=== PATIENT | male | born 1965 | race Hispanic/Latino ===

== ENCOUNTER 2017-02-13 18:13 | Observation (INO) | payer OTHER, MEDICAID ==
[2017-02-13 18:26] VITALS: BMI 26.6
--- NOTE | 2017-02-13 18:43 | ED PDOC ---
Arrival/HPI - General Chief Complaint: Chest Pain Time Seen by Provider: 02/13/17 18:20 Historian: Patient - History of Present Illness Narrative History of Present Illness (Text): 02/13/17 18:24 Shiraz Call is a 51 year old male, whose family history includes stents, who presents to the emergency department complaining of shortness of breath and dizziness upon exertion for about 5 days. Patient also experiences associated intermittent chest tightness, vomiting twice a day for 5 days, and diarrhea for 3 days. Patient endorses that he smokes and uses heroine. Patient denies any fever, chills, nausea, vomiting, diarrhea, urinary symptoms, back pain, neck pain, or any other complaints. He reports he has not seen a doctor in many years. Patient has been under arrest since then. PMD: None Time/Duration: < week Symptom Onset: Gradual Symptom Course: Unchanged Severity Level: Mild Activities at Onset: Light Context: Other ([facility]) Past Medical History - Provider Review Nursing Documentation Reviewed: Yes - Infectious Disease Hx of Infectious Diseases: None - Psychiatric Hx Substance Use: No Family/Social History - Physician Review Nursing Documentation Reviewed: Yes Family/Social History: No Known Family HX Smoking Status: Current Some Days Smoker Hx Alcohol Use: No Hx Substance Use: No Allergies/Home Meds Allergies/Adverse Reactions: Allergies No Known Allergies Allergy (Verified 02/13/17 18:26) Home Medications: Home Meds Medication Instructions Recorded Confirmed No Known Home Med 02/13/17 02/13/17 Review of Systems - Physician Review All systems were reviewed & negative as marked: Yes - Review of Systems Constitutional: absent: Fevers, Night Sweats Eyes: absent: Vision Changes ENT: absent: Hearing Changes Respiratory: SOB Cardiovascular: Chest Pain (Chest Tightness) Gastrointestinal: Diarrhea, Nausea, Vomiting. absent: Abdominal Pain Genitourinary Male: absent: Urinary Output Changes Musculoskeletal: absent: Back Pain, Neck Pain Skin: absent: Rash, Pruritis Neurological: Dizziness Endocrine: absent: Diaphoresis Hemo/Lymphatic: absent: Easy Bleeding Psychiatric: absent: Depression Physical Exam Vital Signs Reviewed: Yes Vital Signs Temp Pulse Resp BP Pulse Ox 02/13/17 18:13 98.1 F 67 18 145/97 H 96 Temperature: Afebrile Blood Pressure: Hypertensive Pulse: Regular Respiratory Rate: Normal Appearance: Positive for: Well-Appearing, Non-Toxic, Comfortable Pain Distress: None Mental Status: Positive for: Alert and Oriented X 3 - Systems Exam Head: Present: Atraumatic, Normocephalic Pupils: Present: PERRL Conjunctiva: Present: Normal Mouth: Present: Moist Mucous Membranes Pharnyx: Present: Normal. No: ERYTHEMA, EXUDATE Neck: Present: Normal Range of Motion Respiratory/Chest: Present: Clear to Auscultation, Good Air Exchange. No: Respiratory Distress, Accessory Muscle Use Cardiovascular: Present: Regular Rate and Rhythm, Normal S1, S2. No: Murmurs Abdomen: Present: Normal Bowel Sounds. No: Tenderness, Distention, Peritoneal Signs Back: Present: Normal Inspection Upper Extremity: Present: Normal Inspection. No: Cyanosis, Edema Lower Extremity: Present: Normal Inspection. No: Edema Neurological: Present: GCS=15, CN II-XII Intact, Speech Normal Skin: Present: Warm, Dry, Normal Color. No: Rashes Psychiatric: Present: Alert, Oriented x 3, Normal Insight, Normal Concentration Medical Decision Making ED Course and Treatment: 02/13/17 18:24 Impression: 51 year old male complaining of shortness of breath and dizziness upon exertion for about 5 days. Differential Diagnosis include but are not limited to: ACS vs. PE vs muscular pain vs anxiety Plan: -- Chest X-ray -- Urinalysis -- Labs -- Aspirin -- Reassess and disposition Progress Notes: EKG: Ordered, reviewed, and independently interpreted the EKG. Rate : 67 BPM Rhythm : NSR Interpretation : Left axis deviation. QRS 100. Incomplete RBBB. Multiple inverted t-waves in V3 through V6 and otherwise diffuse T-wave flattening. Comparison : No previous EKG for comparison. 02/13/17 19:30 Reviewed radiology, Chest X-ray is NAD. 02/13/17 20:49 Patient is a 51 y.o. male smoker with reportd FH of CAD and abnormal ekg with no previous studies. First set of CE is negative and other labs are nondiagnostic. He will need further observation on tele for evaluation and treatment. Discussed with Dr. Shaffer for observation on tele on the hospitalist' s service. - Lab Interpretations Lab Results: 02/13/17 18:45 02/13/17 18:45 Lab Results 02/13/17 20:15: Urine Color Yellow, Urine Appearance Clear, Urine pH 6.0, Ur Specific [place] 1.025, Urine Protein Trace H, Urine Glucose (UA) Negative, Urine Ketones Negative, Urine Blood Negative, Urine Nitrate Negative, Urine Bilirubin Small H, Urine Urobilinogen 1.0 H, Ur Leukocyte Esterase Negative, Urine RBC Pending, Urine WBC Pending 02/13/17 18:45: Sodium 139, Potassium 3.4 L, Chloride 100, Carbon Dioxide 29, Anion Gap 13, BUN 36 H, Creatinine 1.2, Est GFR ( Amer) > 60, Est GFR ( Non-Af Amer) > 60, Random Glucose 110, Calcium 9.3, Magnesium 2.2, Total Bilirubin 2.8 H, AST 139 H, ALT 122 H, Alkaline Phosphatase 67, Lactate Dehydrogenase 648, Total Creatine Kinase 209, Troponin I < 0.01, NT-Pro-B Natriuret Pep 99.0, Total Protein 7.9, Albumin 4.2, Globulin 3.6, Albumin/ Globulin Ratio 1.2, Lipase 383 H 02/13/17 18:45: PT 10.8, INR 1.00, APTT 28.0 02/13/17 18:45: WBC 11.0, RBC 5.54, Hgb 15.6, Hct 45.7, MCV 82.5, MCH 28.2, MCHC 34.1, RDW 14.3, Plt Count 394, MPV 9.7, Gran % 68.7 H, Lymph % (Auto) 23.3 , [place] % (Auto) 7.5 H, Eos % (Auto) 0.3 L, Baso % (Auto) 0.2, Gran # 7.57 H, Lymph # 2.6, [place] # 0.8 H, Eos # 0.0, Baso # 0.02 - RAD Interpretation Radiology Orders: 02/13/17 18:37 CHEST PORTABLE [RAD] Stat - Medication Orders Current Medication Orders: Potassium Chloride 20 meq/ (Sodium Chloride) 1,010 mls @ 100 mls/hr IV .Q10H6M STA Stop: 02/14/17 05:59 Last Admin: 02/13/17 20:45 Dose: 100 mls/hr Discontinued Medications Aspirin (Aspirin) 325 mg PO STAT STA Stop: 02/13/17 18:37 Last Admin: 02/13/17 18:44 Dose: 325 mg Disposition/Present on Arrival - Present on Arrival Any Indicators Present on Arrival: No History of DVT/PE: No History of Uncontrolled Diabetes: No Urinary Catheter: No History of Decub. Ulcer: No History Surgical Site Infection Following: None - Disposition Have Diagnosis and Disposition been Completed?: Yes Diagnosis: Chest pain Disposition: HOSPITALIZED Disposition Time: 20:30 Patient Plan: Observation, Telemetry Condition: FAIR Discharge Instructions (ExitCare): Chest Pain (ED)
[2017-02-13 19:02] LABS: ADD MANUAL DIFF? NO
[2017-02-13 19:25] LABS: ALB/GLOB RATIO 1.2 (1.1-1.8); ALKALINE PHOSPHATASE 67 U/L (38-133); ALT/SGPT 122 U/L (7-56); AST/SGOT 139 U/L (15-59); BILIRUBIN,TOTAL 2.8 mg/dL (0.2-1.3); BLOOD UREA NITROGEN 36 mg/dL (7-21); CALCIUM 9.3 mg/dL (8.4-10.5); CARBON DIOXIDE 29 mmol/L (21-33); CHLORIDE 100 mmol/L (98-107); GFR AFRICAN-AMERICAN > 60; GLUCOSE,RANDOM 110 mg/dL (70-110); LIPASE 383 U/L (23-300); MAGNESIUM 2.2 mg/dL (1.7-2.2); POTASSIUM 3.4 mmol/L (3.6-5.0); SODIUM 139 mmol/L (132-148); TOTAL PROTEIN 7.9 g/dL (5.8-8.3)
[2017-02-13 19:38] LABS: TROPONIN I < 0.01 ng/mL
[2017-02-13 20:16] LABS: BASO # 0.02 K/mm3 (0.0-2.0); BASO % 0.2 % (0.0-3.0); EOS % 0.3 % (1.5-5.0); GRAN # 7.57 (1.4-6.5); GRAN % 68.7 % (50.0-68.0); HEMATOCRIT 45.7 % (42.0-52.0); LYMPH # 2.6 (1.2-3.4); LYMPH % 23.3 % (22.0-35.0); MEAN CELL VOLUME 82.5 fL (80.0-105.0); MEAN CORPUSCULAR HEMOGLOBIN 28.2 pg (25.0-35.0); MEAN CORPUSCULAR HGB CONC 34.1 g/dl (31.0-37.0); MEAN PLATELET VOLUME 9.7 fl (7.0-11.0); MONO # 0.8 (0.1-0.6); MONO % 7.5 % (1.0-6.0); PLATELET COUNT 394 10^3/uL (120.0-450.0); RED CELL DISTRIBUTION WIDTH 14.3 % (11.5-14.5)
[2017-02-13 20:23] LABS: URINE BILIRUBIN SMALL (NEGATIVE); URINE BLOOD NEGATIVE (NEGATIVE); URINE GLUCOSE (UA) NEGATIVE (NEGATIVE); URINE KETONE NEGATIVE (NEGATIVE); URINE LEUKOCYTE ESTERASE NEGATIVE Leu/uL (NEGATIVE); URINE PROTEIN TRACE mg/dL (<30 mg/dL)
[2017-02-13 20:48] LABS: URINE APPEARANCE CLEAR (CLEAR); URINE COLOR YELLOW (YELLOW)
[2017-02-13 20:51] LABS: URINE EPITHELIAL CELLS 0 - 2 /hpf (0-5); URINE RBC 0 - 2 /hpf (0-2); URINE WBC 0 - 2 /hpf (0-6)
[2017-02-13] MEDS ORDERED: Morphine 4 mg/ml ISec IVP PRN (21:41)
[2017-02-13] MEDS ORDERED: Albuterol-Ipratrop 3 mg / 0.5 (3 ml) UD IH PRN (21:45)
[2017-02-13 21:52] VITALS: O2SAT 97
[2017-02-13 22:10] LABS: CHOLESTEROL 278 mg/dL (130-200)
[2017-02-14] MEDS ORDERED: Pneumococcal 23-Valent Vaccine IM ONE (01:01)
[2017-02-14] MEDS: Morphine 2 mg/ml ISec IVP PRN ×2 (01:31→06:28)
[2017-02-14 03:06] LABS: ADD MANUAL DIFF? NO
[2017-02-14 03:10] LABS: BASO # 0.02 K/mm3 (0.0-2.0); BASO % 0.2 % (0.0-3.0); EOS % 0.3 % (1.5-5.0); GRAN # 6.17 (1.4-6.5); GRAN % 65.5 % (50.0-68.0); HEMATOCRIT 43.9 % (42.0-52.0); LYMPH # 2.5 (1.2-3.4); LYMPH % 26.8 % (22.0-35.0); MEAN CELL VOLUME 82.1 fL (80.0-105.0); MEAN CORPUSCULAR HGB CONC 34.2 g/dl (31.0-37.0); MEAN PLATELET VOLUME 9.4 fl (7.0-11.0); MONO # 0.7 (0.1-0.6); MONO % 7.2 % (1.0-6.0); PLATELET COUNT 360 10^3/uL (120.0-450.0); RED CELL DISTRIBUTION WIDTH 14.2 % (11.5-14.5); WHITE BLOOD COUNT 9.4 10^3/ul (4.5-11.0)
[2017-02-14 03:23] LABS: ALB/GLOB RATIO 1.2 (1.1-1.8); ALKALINE PHOSPHATASE 66 U/L (38-133); ALT/SGPT 113 U/L (7-56); AST/SGOT 89 U/L (15-59); BLOOD UREA NITROGEN 29 mg/dL (7-21); CALCIUM 8.8 mg/dL (8.4-10.5); CARBON DIOXIDE 27 mmol/L (21-33); CHLORIDE 104 mmol/L (98-107); GFR AFRICAN-AMERICAN > 60; GLUCOSE,RANDOM 117 mg/dL (70-110); POTASSIUM 3.5 mmol/L (3.6-5.0); SODIUM 138 mmol/L (132-148)
[2017-02-14 03:39] LABS: TROPONIN I < 0.01 ng/mL
--- NOTE | 2017-02-14 04:12 | CP.PCM.HP ---
<Amanda Gonzalez - Last Filed: 02/14/17 07:07> History of Present Illness - History of Present Illness History of Present Illness: PGY-1 H&P 51 yo male with no significant past medical history, presented to ED with chest pain, sob and lightheadedness with excretion for 5 days. Patient states the sob and lightheadedness occur with minimal excretion. The chest tightness is mild, lasting only a few seconds, pain is mid sternal. Patient also reports vomiting 10 times over the past 5 days, no blood was observed. Patient states these symptoms began at around the time he was arrested. Patients states that his father, brother and mother all had extensive cardiac disease including UT and stents. He also reports subjective fever, chills, general fatigue and headache. He states that he had diarrhea for the past 4 days. Denies urinary symptoms. Patient states he has not seen doctor in years. PMH: denies PSH: denies allergy: NKDA Home meds: denies social hx: smokes 1 ppd, denies current alcohol use for past year, previously drank 5-6 drinks per weekend, heroine use, denies current IVDA family hx: father, brother and mother had extensive cardiac history, including UT and stents. Present on Admission - Present on Admission Any Indicators Present on Admission: No Review of Systems - Constitutional Constitutional: Chills, Fever, Headache, Weakness. absent: Weight Gain, Weight Loss - EENT Eyes: absent: Change in Vision Nose/Mouth/Throat: absent: Nasal Congestion, Sore Throat - Cardiovascular Cardiovascular: Chest Pain, Dyspnea, Dyspnea on Exertion, Lightheadedness. absent: Palpitations - Respiratory Respiratory: Dyspnea on Exertion. absent: Cough - Gastrointestinal Gastrointestinal: Diarrhea, Nausea, Vomiting. absent: Abdominal Pain, Constipation - Genitourinary Genitourinary: absent: Difficulty Urinating, Dysuria - Musculoskeletal Musculoskeletal: absent: Muscle Weakness, Numbness, Tingling - Integumentary Integumentary: absent: Rash, Skin Ulcer, Sores - Neurological Neurological: Headaches, Weakness. absent: Numbness, Syncope, Tingling - Hematologic/Lymphatic Hematologic: absent: Easy Bleeding, Easy Bruising Past Patient History - Infectious Disease Hx of Infectious Diseases: None - Past Social History Smoking Status: Current Some Days Smoker Alcohol: Other Drugs: Other (heroin) - CARDIAC Hx Cardiac Disorders: No (family hx) - PULMONARY Hx Respiratory Disorders: No - NEUROLOGICAL Hx Neurological Disorder: No - HEENT Hx HEENT Problems: No - RENAL Hx Chronic Kidney Disease: No - ENDOCRINE/METABOLIC Hx Endocrine Disorders: No - HEMATOLOGICAL/ONCOLOGICAL Hx Blood Disorders: No - INTEGUMENTARY Hx Dermatological Problems: No - MUSCULOSKELETAL/RHEUMATOLOGICAL Hx Back Pain: Yes Other/Comment: sciatica - GASTROINTESTINAL Hx Gastrointestinal Disorders: No - GENITOURINARY/GYNECOLOGICAL Hx Genitourinary Disorders: No - PSYCHIATRIC Hx Psychophysiologic Disorder: No - SURGICAL HISTORY Hx Surgeries: No Meds Allergies/Adverse Reactions: Allergies Allergy/AdvReac Type Severity Reaction Status Date / Time No Known Allergies Allergy Verified 02/13/17 18:26 Physical Exam - Constitutional Appears: Well, No Acute Distress - Head Exam Head Exam: ATRAUMATIC, NORMOCEPHALIC - Eye Exam Eye Exam: Normal appearance - ENT Exam ENT Exam: Mucous Membranes Moist - Respiratory Exam Respiratory Exam: Clear to Auscultation Bilateral, NORMAL BREATHING PATTERN. absent: Rales, Rhonchi, Wheezes, Respiratory Distress - Cardiovascular Exam Cardiovascular Exam: REGULAR RHYTHM, +S1, +S2. absent: Tachycardia, Diastolic murmur, Systolic Murmur - GI/Abdominal Exam GI & Abdominal Exam: Hernia, Normal Bowel Sounds, Soft. absent: Distended, Firm , Guarding, Tenderness - Extremities Exam Extremities exam: Positive for: normal inspection. Negative for: pedal edema - Neurological Exam Neurological exam: Alert, Oriented x3 - Skin Skin Exam: Dry, Intact, Normal Color, Warm Results - Vital Signs Recent Vital Signs: Last Vital Signs Temp 98.4 F 02/14/17 00:17 Pulse 84 02/14/17 01:08 Resp 20 02/14/17 00:17 BP 140/86 02/14/17 00:17 Pulse Ox 97 02/13/17 21:51 - Labs Result Diagrams: 02/14/17 02:50 02/14/17 02:50 Labs: Laboratory Results - last 24 hr 02/14/17 02/14/17 02:50 02:50 WBC 9.4 RBC 5.35 Hgb 15.0 Hct 43.9 MCV 82.1 MCH 28.0 MCHC 34.2 RDW 14.2 Plt Count 360 MPV 9.4 Gran % 65.5 Lymph % (Auto) 26.8 [place] % (Auto) 7.2 H Eos % (Auto) 0.3 L Baso % (Auto) 0.2 Gran # 6.17 Lymph # 2.5 [place] # 0.7 H Eos # 0.0 Baso # 0.02 Sodium 138 Potassium 3.5 L Chloride 104 Carbon Dioxide 27 Anion Gap 11 BUN 29 H Creatinine 1.1 Est GFR ( Amer) > 60 Est GFR (Non-Af Amer) > 60 Random Glucose 117 H Calcium 8.8 Total Bilirubin 2.0 H AST 89 H ALT 113 H Alkaline Phosphatase 66 Troponin I < 0.01 Total Protein 7.0 Albumin 3.8 Globulin 3.2 Albumin/Globulin Ratio 1.2 Assessment & Plan - Assessment and Plan (Free Text) Assessment: 51 yo male with no significant past medical history, presented to ED with chest pain, sob and lightheadedness with excretion for 5 days. Plan: 1. chest pain with SOB - EKG in ED showed inverted t waves in V3- V6 - Cardio consult - trop negative x 1, trend trops - repeat EKG - echo - lipid panel, HgbA1C - TSH is low, will order T4, T3 - UDS - asa 81mg - duonebs prn - morphine prn - heart health diet ppx GI- pepcid DVT- lovenox <Deena WILSON,Andres - Last Filed: 02/14/17 07:59> Results - Vital Signs Recent Vital Signs: Last Vital Signs Temp 98.9 F 02/14/17 05:46 Pulse 76 02/14/17 05:46 Resp 20 02/14/17 05:46 BP 147/85 02/14/17 05:46 Pulse Ox 97 02/13/17 21:51 - Labs Result Diagrams: 02/14/17 02:50 02/14/17 02:50 Labs: Laboratory Results - last 24 hr 02/14/17 02/14/17 02:50 02:50 WBC 9.4 RBC 5.35 Hgb 15.0 Hct 43.9 MCV 82.1 MCH 28.0 MCHC 34.2 RDW 14.2 Plt Count 360 MPV 9.4 Gran % 65.5 Lymph % (Auto) 26.8 [place] % (Auto) 7.2 H Eos % (Auto) 0.3 L Baso % (Auto) 0.2 Gran # 6.17 Lymph # 2.5 [place] # 0.7 H Eos # 0.0 Baso # 0.02 Sodium 138 Potassium 3.5 L Chloride 104 Carbon Dioxide 27 Anion Gap 11 BUN 29 H Creatinine 1.1 Est GFR ( Amer) > 60 Est GFR (Non-Af Amer) > 60 Random Glucose 117 H Calcium 8.8 Total Bilirubin 2.0 H AST 89 H ALT 113 H Alkaline Phosphatase 66 Troponin I < 0.01 Total Protein 7.0 Albumin 3.8 Globulin 3.2 Albumin/Globulin Ratio 1.2 Attending/Attestation - Attestation I have personally seen and examined this patient.: Yes I have fully participated in the care of the patient.: Yes I have reviewed all pertinent clinical information: Yes Notes (Text): 02/14/17 07:56 -I agree with the above H&P completed by the resident physician with the following additions and/or changes: -The patient is a 51 year old recently incarcerated man with a family history of UT (brother at age 60) who will be admitted for chest pain (r/o ACS). We will check serial trop's and EKG's, HgA1c, TSH, drug screen and lipid panel. Also, a cards consult has been placed. He will receive baby ASA. Of note, he also reports symptoms of acute gastroenteritis.
[2017-02-14 08:56] LABS: ALCOHOL SERUM < 10 mg/dL (0-10)
[2017-02-14 09:13] LABS: FREE T4 0.88 ng/dL (0.78-2.19)
[2017-02-14 09:27] LABS: THYROID STIMULATING HORMONE 0.49 mIU/mL (0.46-4.68)
--- NOTE | 2017-02-14 09:31 | RAD ---
HISTORY: sob COMPARISON: No prior. FINDINGS: LUNGS: No active pulmonary disease. PLEURA: No significant pleural effusion identified, no pneumothorax apparent. CARDIOVASCULAR: Normal. OSSEOUS STRUCTURES: No significant abnormalities. VISUALIZED UPPER ABDOMEN: Normal. OTHER FINDINGS: None. IMPRESSION: No active disease.
--- NOTE | 2017-02-14 09:56 | CARD ---
APPROVED REPORT EKG Measurement Heart [id number] [place] 140P20 [id number] <Conclusion> Normal sinus rhythm Nonspecific T wave abnormality Prolonged QT Abnormal ECG
[2017-02-14] MEDS ORDERED: Pantoprazole 40 mg EC Tab PO SCH (10:00)
[2017-02-14] MEDS ORDERED: Enoxaparin 40 mg Syringe SC SCH (10:00)
--- NOTE | 2017-02-14 10:06 | CARD ---
APPROVED REPORT EKG Measurement Heart [id number] [place] [id number] <Conclusion> Normal sinus rhythm Incomplete right bundle branch block Minimal voltage criteria for LVH, may be normal variant T wave abnormality, consider anterolateral ischemia Prolonged QT Abnormal ECG
[2017-02-14 12:09] VITALS: RESP 18; TEMP 98.2
[2017-02-14 15:51] LABS: BLOOD UREA NITROGEN 25 mg/dL (7-21); CALCIUM 9.1 mg/dL (8.4-10.5); CARBON DIOXIDE 23 mmol/L (21-33); CHLORIDE 104 mmol/L (95-110); GFR AFRICAN-AMERICAN > 60; GLUCOSE,RANDOM 138 mg/dL (70-110); POTASSIUM 3.8 mmol/L (3.6-5.0); SODIUM 135 mmol/L (132-148)
[2017-02-14 17:47] VITALS: BP 139/98
--- NOTE | 2017-02-14 18:36 | CARD ---
APPROVED REPORT EKG Measurement Heart [id number] [place] 136P25 [id number] <Conclusion> Normal sinus rhythm Nonspecific T wave abnormality Abnormal ECG
[2017-02-14 18:59] VITALS: PULSE 58
--- NOTE | 2017-02-14 19:42 | CON ---
DATE: 02/14/2017 REASON FOR CONSULTATION: Shortness of breath and dizziness. HISTORY OF PRESENT ILLNESS: The patient is a 51-year-old male who was incarcerated recently for in g heroin, and after incarceration, the patient reported shortness of breath and dizziness. The patie nt denies any retrosternal chest pain and is unaware of any history of heart attack or coronary inter vention in the past. SOCIAL HISTORY: The patient is a smoker and is a heroin abuser. MEDICATIONS: Aspirin 81 mg once a day, Coreg 3.125 mg a day, Lipitor 40 mg once a day, Lovenox 40 mg subcutaneous once a day, Protonix 40 mg p.o. once a day, morphine sulfate 1 mg intravenous q. 4 hours p.r.n. REVIEW OF SYSTEMS: No fever or chills. No syncope, no retrosternal chest pain. PHYSICAL EXAMINATION: GENERAL: The patient is a middle-aged male who does not appear to be in any distress. VITAL SIGNS: Blood pressure 153/96, heart rate 61, temperature 98.2, respiration 18. HEENT: Normocephalic. NECK: No JVD. CHEST: Clear. HEART: S1, S2 regular. EXTREMITIES: No edema, no calf tenderness. LABORATORY DATA: Urine drug screen is positive only for benzodiazepines. It is negative for opiates . SMA-7: Sodium 138, potassium 3.5, chloride 104, CO2 of 27, glucose 117, BUN 29, creatinine 1.1. TSH level has been normal at 0.25. White count, hemoglobin and hematocrit and platelet count are all within normal limits. PT, PTT are within normal limits. EKG revealed sinus rhythm with nonspecific T wave changes, heart rate 67 beats per minute. ASSESSMENT: 1. Shortness of breath, rule out underlying congestive heart failure. 2. EKG with evidence of nonspecific T-wave changes. Two sets of troponins are negative. 3. Mild hypokalemia. RECOMMENDATIONS: Continue current aspirin, Coreg, Lipitor, and subcutaneous Lovenox, potassium chlor [place] 20 mEq was administered intravenously earlier. I will review the echocardiographic study that wa s performed today; however, the patient is insisting to sign against medical advice at this moment an d that was relayed to Dr. Santizo, the primary physician. Adriel Burgos MD cc: [id number] TT: 02/14/2017 19:41:31 Confirmation # [id number] Dictation # [id number] mn
--- NOTE | 2017-02-14 23:02 | CARD ---
APPROVED REPORT EXAM: Two-dimensional and M-mode echocardiogram with Doppler and color Doppler. INDICATION Chest Pain 2D DIMENSIONS IVSd1.0 (0.7-1.1cm)LVDd4.8 (3.9-5.9cm) PWd1.1 (0.7-1.1cm)LVDs3.5 (2.5-4.0cm) FS (%) 27.0 %LVEF (%)52.6 (>50%) M-Mode DIMENSIONS Aortic Root3.30 (2.2-3.7cm)Aortic Cusp Exc.1.90 (1.5-2.0cm) Aortic Valve AoV Peak Laijvivl968.0cm/Janeen Peak GR.5mmHg Mitral Valve MV E Gkjowibq78.8cm/sMV A Ymxxvocd38.7cm/sE/A ratio0.9 TDI Lateral E' Peak V6.82cm/sMedial E' Peak V6.24cm/sE/Lateral E'8.5 E/Medial E'9.3 Pulmonary Valve PV Peak Pwpwxixw01.7cm/sPV Peak Grad.2mmHg Tricuspid Valve TR Peak Ownzwowr979bp/sRAP [id number] Peak Gr.16mmHg [id number] LEFT VENTRICLE The left ventricle is normal size. There is normal left ventricular wall thickness. The left ventricular function is normal.EF-55% There is normal LV segmental wall motion. Transmitral Doppler flow pattern is Grade III-reversible restrictive diastolic dysfunction. No left ventricle thrombus noted on this study. There is no ventricular septal defect visualized. There is no left ventricular aneurysm. There is no mass noted in the left ventricle. RIGHT VENTRICLE The right ventricle is normal size. There is normal right ventricular wall thickness. The right ventricular systolic function is normal. ATRIA The left atrium size is normal. The right atrium size is normal. The interatrial septum is intact with no evidence for an atrial septal defect. AORTIC VALVE The aortic valve is thickened but opens well. There is trace aortic regurgitation. There is no aortic valvular stenosis. There is no aortic valvular vegetation. MITRAL VALVE The mitral valve is thickened but opens well. Mitral regurgitation is mild. There is no mitral valve stenosis. There is no evidence of mitral valve prolapse. TRICUSPID VALVE The tricuspid valve leaflets are thickened , but open well. There is mild tricuspid regurgitation.RVSP-26 mmof hg There is no tricuspid valve stenosis. There is no tricuspid valve prolapse or vegetation. PULMONIC VALVE The pulmonary valve is normal in structure. GREAT VESSELS The aortic root is normal in size. The ascending aorta is normal in size. The pulmonary artery is normal. The IVC is normal in size and collapses >50% with inspiration. PERICARDIAL EFFUSION There is no pleural effusion. There is no pericardial effusion. <Conclusion> The left ventricle is normal size. There is normal left ventricular wall thickness. The left ventricular function is normal.EF-55% Mitral regurgitation is mild. There is mild tricuspid regurgitation.RVSP-26 mmof hg The IVC is normal in size and collapses >50% with inspiration. There is no pericardial effusion. No vegetation or thrombuis noted,
--- NOTE | 2017-03-11 11:47 | CP.PCM.DIS ---
<Yumi Wei - Last Filed: 03/12/17 05:50> Provider - Provider Date of Admission: 02/13/17 20:52 Attending physician: Sunil Santizo MD Primary care physician: unknown Consults: Dr. Burgos Time Spent in preparation of Discharge (in minutes): 25 Hospital Course - Lab Results Lab Results: Most Recent Lab Values WBC 9.4 10^3/ul (4.5-11.0) 02/14/17 02:50 RBC 5.35 10^6/uL (3.5-6.1) 02/14/17 02:50 Hgb 15.0 gm/dL (14.0-18.0) 02/14/17 02:50 Hct 43.9 % (42.0-52.0) 02/14/17 02:50 MCV 82.1 fL (80.0-105.0) 02/14/17 02:50 MCH 28.0 pg (25.0-35.0) 02/14/17 02:50 MCHC 34.2 g/dl (31.0-37.0) 02/14/17 02:50 RDW 14.2 % (11.5-14.5) 02/14/17 02:50 Plt Count 360 10^3/uL (120.0-450.0) 02/14/17 02:50 MPV 9.4 fl (7.0-11.0) 02/14/17 02:50 Gran % 65.5 % (50.0-68.0) 02/14/17 02:50 Lymph % (Auto) 26.8 % (22.0-35.0) 02/14/17 02:50 [place] % (Auto) 7.2 % (1.0-6.0) H 02/14/17 02:50 Eos % (Auto) 0.3 % (1.5-5.0) L 02/14/17 02:50 Baso % (Auto) 0.2 % (0.0-3.0) 02/14/17 02:50 Gran # 6.17 (1.4-6.5) 02/14/17 02:50 Lymph # 2.5 (1.2-3.4) 02/14/17 02:50 [place] # 0.7 (0.1-0.6) H 02/14/17 02:50 Eos # 0.0 (0.0-0.7) 02/14/17 02:50 Baso # 0.02 K/mm3 (0.0-2.0) 02/14/17 02:50 PT 10.8 Seconds (9.9-11.8) 02/13/17 18:45 INR 1.00 (0.93-1.08) 02/13/17 18:45 APTT 28.0 Seconds (23.7-30.8) 02/13/17 18:45 D-Dimer, Quantitative 0.28 mg/L FEU (0-0.50) 02/14/17 16:28 Sodium 135 mmol/L (132-148) 02/14/17 10:00 Potassium 3.8 mmol/L (3.6-5.0) 02/14/17 10:00 Chloride 104 mmol/L (95-110) 02/14/17 10:00 Carbon Dioxide 23 mmol/L (21-33) 02/14/17 10:00 Anion Gap 12 (10-20) 02/14/17 10:00 BUN 25 mg/dL (7-21) H 02/14/17 10:00 Creatinine 1.0 mg/dL (0.5-1.4) 02/14/17 10:00 Est GFR ( Amer) > 60 02/14/17 10:00 Est GFR (Non-Af Amer) > 60 02/14/17 10:00 Random Glucose 138 mg/dL (70-110) H 02/14/17 10:00 Hemoglobin A1c 5.9 % (4.2-6.5) 02/13/17 18:45 Calcium 9.1 mg/dL (8.4-10.5) 02/14/17 10:00 Magnesium 2.2 mg/dL (1.7-2.2) 02/13/17 18:45 Total Bilirubin 2.0 mg/dL (0.2-1.3) H 02/14/17 02:50 AST 89 U/L (15-59) H 02/14/17 02:50 ALT 113 U/L (7-56) H 02/14/17 02:50 Alkaline Phosphatase 66 U/L (38-133) 02/14/17 02:50 Lactate Dehydrogenase 648 U/L (333-699) 02/13/17 18:45 Total Creatine Kinase 209 U/L (35-230) 02/13/17 18:45 Troponin I < 0.01 ng/mL 02/14/17 08:00 NT-Pro-B Natriuret Pep 99.0 pg/mL (0-450) 02/13/17 18:45 Total Protein 7.0 g/dL (5.8-8.3) 02/14/17 02:50 Albumin 3.8 g/dL (3.0-4.8) 02/14/17 02:50 Globulin 3.2 gm/dL 02/14/17 02:50 Albumin/Globulin Ratio 1.2 (1.1-1.8) 02/14/17 02:50 Triglycerides 196 mg/dL (35-160) H 02/13/17 18:45 Cholesterol 278 mg/dL (130-200) H 02/13/17 18:45 LDL Cholesterol Direct 229 mg/dL (0-129) H 02/13/17 18:45 HDL Cholesterol 31 mg/dL (29-60) 02/13/17 18:45 Lipase 383 U/L (23-300) H 02/13/17 18:45 Free T4 0.88 ng/dL (0.78-2.19) 02/14/17 08:00 Thyroxine (T4) 8.4 ug/dL (5.5-11.0) 02/13/17 18:45 TSH 3rd Generation 0.49 mIU/mL (0.46-4.68) 02/14/17 08:00 Urine Color Yellow (YELLOW) 02/13/17 20:15 Urine Appearance Clear (CLEAR) 02/13/17 20:15 Urine pH 6.0 (4.7-8.0) 02/13/17 20:15 Ur Specific [place] 1.025 (1.005-1.035) 02/13/17 20:15 Urine Protein Trace mg/dL (<30 mg/dL) H 02/13/17 20:15 Urine Glucose (UA) Negative mg/dL (NEGATIVE) 02/13/17 20:15 Urine Ketones Negative mg/dL (NEGATIVE) 02/13/17 20:15 Urine Blood Negative (NEGATIVE) 02/13/17 20:15 Urine Nitrate Negative (NEGATIVE) 02/13/17 20:15 Urine Bilirubin Small (NEGATIVE) H 02/13/17 20:15 Urine Urobilinogen 1.0 E.U./dL (<1 E.U./dL) H 02/13/17 20:15 Ur Leukocyte Esterase Negative Jevon/uL (NEGATIVE) 02/13/17 20:15 Urine RBC 0 - 2 /hpf (0-2) 02/13/17 20:15 Urine WBC 0 - 2 /hpf (0-6) 02/13/17 20:15 Ur Epithelial Cells 0 - 2 /hpf (0-5) 02/13/17 20:15 Urine Opiates Screen Negative (NEGATIVE) 02/13/17 20:15 Urine Methadone Screen Negative (NEGATIVE) 02/13/17 20:15 Ur Barbiturates Screen Negative (NEGATIVE) 02/13/17 20:15 Ur Phencyclidine Scrn Negative (NEGATIVE) 02/13/17 20:15 Ur Amphetamines Screen Negative (NEGATIVE) 02/13/17 20:15 U Benzodiazepines Scrn Positive (NEGATIVE) H 02/13/17 20:15 U Oth Cocaine Metabols Negative (NEGATIVE) 02/13/17 20:15 U Cannabinoids Screen Negative (NEGATIVE) 02/13/17 20:15 Alcohol, Quantitative < 10 mg/dL (0-10) 02/14/17 08:00 Hepatitis A IgM Ab Negative (NEGATIVE) 02/14/17 08:00 Hep Bs Antigen Negative (NEGATIVE) 02/14/17 08:00 Hep B Core IgM Ab Negative (NEGATIVE) 02/14/17 08:00 Hepatitis C Antibody Negative (NEGATIVE) 02/14/17 08:00 - Hospital Course Hospital Course: 51 yo male with no significant past medical history, presented to ED with chest pain, sob and lightheadedness with excretion for 5 days. Patient states the sob and lightheadedness occur with minimal excretion. The chest tightness is mild, lasting only a few seconds, pain is mid sternal. Patient states these symptoms began at around the time he was arrested. Patients states that his father, brother and mother all had extensive cardiac disease including CO and stents. ASA administered. EKG in ED showed inverted t waves in V3- V6. Trop negative x 1, Pt transferred to telemetry obs for chest pain. On floor, cardiology consulted, and troponin series was negative. Echocardiogram pending at time of being discharged AMA in fair condition after explaining risk and benefits of continued monitoring and treatment and pt indicating understanding and declining. Discharge Exam - Additional Findings Additional findings: - Constitutional Appears: Well, No Acute Distress - Head Exam Head Exam: ATRAUMATIC, NORMOCEPHALIC - Eye Exam Eye Exam: Normal appearance, EOMI - ENT Exam ENT Exam: Mucous Membranes Moist, normal external ear exam - Respiratory Exam Respiratory Exam: Clear to Auscultation Bilateral, NORMAL BREATHING PATTERN. - Cardiovascular Exam Cardiovascular Exam: REGULAR RHYTHM, +S1, +S2. - GI/Abdominal Exam GI & Abdominal Exam: Hernia, Normal Bowel Sounds, Soft, non-tender. - Extremities Exam Extremities exam: Positive for: normal inspection. Negative for: pedal edema - Neurological Exam Neurological exam: Alert, Oriented x3 - Skin Skin Exam: Dry, Intact, Normal Color, Warm Discharge Plan - Follow Up Plan Condition: FAIR Disposition: AGAINST MEDICAL ADVICE <Sunil Santizo - Last Filed: 03/12/17 06:54> Provider - Provider Date of Admission: 02/13/17 20:52 Attending physician: Sunil Santizo MD Hospital Course - Lab Results Lab Results: Most Recent Lab Values WBC 9.4 10^3/ul (4.5-11.0) 02/14/17 02:50 RBC 5.35 10^6/uL (3.5-6.1) 02/14/17 02:50 Hgb 15.0 gm/dL (14.0-18.0) 02/14/17 02:50 Hct 43.9 % (42.0-52.0) 02/14/17 02:50 MCV 82.1 fL (80.0-105.0) 02/14/17 02:50 MCH 28.0 pg (25.0-35.0) 02/14/17 02:50 MCHC 34.2 g/dl (31.0-37.0) 02/14/17 02:50 RDW 14.2 % (11.5-14.5) 02/14/17 02:50 Plt Count 360 10^3/uL (120.0-450.0) 02/14/17 02:50 MPV 9.4 fl (7.0-11.0) 02/14/17 02:50 Gran % 65.5 % (50.0-68.0) 02/14/17 02:50 Lymph % (Auto) 26.8 % (22.0-35.0) 02/14/17 02:50 [place] % (Auto) 7.2 % (1.0-6.0) H 02/14/17 02:50 Eos % (Auto) 0.3 % (1.5-5.0) L 02/14/17 02:50 Baso % (Auto) 0.2 % (0.0-3.0) 02/14/17 02:50 Gran # 6.17 (1.4-6.5) 02/14/17 02:50 Lymph # 2.5 (1.2-3.4) 02/14/17 02:50 [place] # 0.7 (0.1-0.6) H 02/14/17 02:50 Eos # 0.0 (0.0-0.7) 02/14/17 02:50 Baso # 0.02 K/mm3 (0.0-2.0) 02/14/17 02:50 PT 10.8 Seconds (9.9-11.8) 02/13/17 18:45 INR 1.00 (0.93-1.08) 02/13/17 18:45 APTT 28.0 Seconds (23.7-30.8) 02/13/17 18:45 D-Dimer, Quantitative 0.28 mg/L FEU (0-0.50) 02/14/17 16:28 Sodium 135 mmol/L (132-148) 02/14/17 10:00 Potassium 3.8 mmol/L (3.6-5.0) 02/14/17 10:00 Chloride 104 mmol/L (95-110) 02/14/17 10:00 Carbon Dioxide 23 mmol/L (21-33) 02/14/17 10:00 Anion Gap 12 (10-20) 02/14/17 10:00 BUN 25 mg/dL (7-21) H 02/14/17 10:00 Creatinine 1.0 mg/dL (0.5-1.4) 02/14/17 10:00 Est GFR ( Amer) > 60 02/14/17 10:00 Est GFR (Non-Af Amer) > 60 02/14/17 10:00 Random Glucose 138 mg/dL (70-110) H 02/14/17 10:00 Hemoglobin A1c 5.9 % (4.2-6.5) 02/13/17 18:45 Calcium 9.1 mg/dL (8.4-10.5) 02/14/17 10:00 Magnesium 2.2 mg/dL (1.7-2.2) 02/13/17 18:45 Total Bilirubin 2.0 mg/dL (0.2-1.3) H 02/14/17 02:50 AST 89 U/L (15-59) H 02/14/17 02:50 ALT 113 U/L (7-56) H 02/14/17 02:50 Alkaline Phosphatase 66 U/L (38-133) 02/14/17 02:50 Lactate Dehydrogenase 648 U/L (333-699) 02/13/17 18:45 Total Creatine Kinase 209 U/L (35-230) 02/13/17 18:45 Troponin I < 0.01 ng/mL 02/14/17 08:00 NT-Pro-B Natriuret Pep 99.0 pg/mL (0-450) 02/13/17 18:45 Total Protein 7.0 g/dL (5.8-8.3) 02/14/17 02:50 Albumin 3.8 g/dL (3.0-4.8) 02/14/17 02:50 Globulin 3.2 gm/dL 02/14/17 02:50 Albumin/Globulin Ratio 1.2 (1.1-1.8) 02/14/17 02:50 Triglycerides 196 mg/dL (35-160) H 02/13/17 18:45 Cholesterol 278 mg/dL (130-200) H 02/13/17 18:45 LDL Cholesterol Direct 229 mg/dL (0-129) H 02/13/17 18:45 HDL Cholesterol 31 mg/dL (29-60) 02/13/17 18:45 Lipase 383 U/L (23-300) H 02/13/17 18:45 Free T4 0.88 ng/dL (0.78-2.19) 02/14/17 08:00 Thyroxine (T4) 8.4 ug/dL (5.5-11.0) 02/13/17 18:45 TSH 3rd Generation 0.49 mIU/mL (0.46-4.68) 02/14/17 08:00 Urine Color Yellow (YELLOW) 02/13/17 20:15 Urine Appearance Clear (CLEAR) 02/13/17 20:15 Urine pH 6.0 (4.7-8.0) 02/13/17 20:15 Ur Specific [place] 1.025 (1.005-1.035) 02/13/17 20:15 Urine Protein Trace mg/dL (<30 mg/dL) H 02/13/17 20:15 Urine Glucose (UA) Negative mg/dL (NEGATIVE) 02/13/17 20:15 Urine Ketones Negative mg/dL (NEGATIVE) 02/13/17 20:15 Urine Blood Negative (NEGATIVE) 02/13/17 20:15 Urine Nitrate Negative (NEGATIVE) 02/13/17 20:15 Urine Bilirubin Small (NEGATIVE) H 02/13/17 20:15 Urine Urobilinogen 1.0 E.U./dL (<1 E.U./dL) H 02/13/17 20:15 Ur Leukocyte Esterase Negative Jevon/uL (NEGATIVE) 02/13/17 20:15 Urine RBC 0 - 2 /hpf (0-2) 02/13/17 20:15 Urine WBC 0 - 2 /hpf (0-6) 02/13/17 20:15 Ur Epithelial Cells 0 - 2 /hpf (0-5) 02/13/17 20:15 Urine Opiates Screen Negative (NEGATIVE) 02/13/17 20:15 Urine Methadone Screen Negative (NEGATIVE) 02/13/17 20:15 Ur Barbiturates Screen Negative (NEGATIVE) 02/13/17 20:15 Ur Phencyclidine Scrn Negative (NEGATIVE) 02/13/17 20:15 Ur Amphetamines Screen Negative (NEGATIVE) 02/13/17 20:15 U Benzodiazepines Scrn Positive (NEGATIVE) H 02/13/17 20:15 U Oth Cocaine Metabols Negative (NEGATIVE) 02/13/17 20:15 U Cannabinoids Screen Negative (NEGATIVE) 02/13/17 20:15 Alcohol, Quantitative < 10 mg/dL (0-10) 02/14/17 08:00 Hepatitis A IgM Ab Negative (NEGATIVE) 02/14/17 08:00 Hep Bs Antigen Negative (NEGATIVE) 02/14/17 08:00 Hep B Core IgM Ab Negative (NEGATIVE) 02/14/17 08:00 Hepatitis C Antibody Negative (NEGATIVE) 02/14/17 08:00 Attending/Attestation - Attestation I have personally seen and examined this patient.: Yes I have fully participated in the care of the patient.: Yes I have reviewed all pertinent clinical information, including history, physical exam and plan: Yes Notes (Text): 03/12/17 06:51 D/C SUMMARY FOR 02/14/17 51 year old male with no signficant past medical history who presented with complaint of chest pain and shortness of breath in addition to feeling lightheadedness. EKG showed some TWI in leads V3-V6. He was admitted to telemetry unit for observation. Serial cardiac enzymes were negative. Cardiology consultation was requested and echocardiogram was obtained. He signed out AMA later in the afternoon. He was explained the risks of signing out AMA which he acknowledged but signed out against medical advice. Sunil Santizo MD Hospitalist.
== END 2017-02-14 19:39 ==
LOC: ED 18:13 → MERGE 20:52 → ERH 20:52 → 2RNO 23:10
PROVIDERS: ADMIT Internal Medicine; ATTEND Internal Medicine
DX: R07.89 Other chest pain (principal); R06.02 Shortness of breath; E87.6 Hypokalemia; F17.210 Nicotine dependence, cigarettes, uncomplicated; F11.10 Opioid abuse, uncomplicated; Z82.49 Family history of ischemic heart disease and other diseases of the circulatory system
CPT/HCPCS: 36415; 71010; 80053; 80061; 80074; 80320; 80324; 80345; 80346; 80349; 80353; 80358; 80361; 81001; 82550; 83036; 83615; 83690; 83735; 83880; 83992; 84436; 84439; 84443; 84484; 85025; 85378; 85610; 85730; 93005; 93306; 96372; 96374; 96376; 99283; G0378; J1650; J2270; J7040